=== PATIENT | female | born 1970 | race African-American/Black ===

== ENCOUNTER 2022-03-05 20:12 | Observation (INO) | payer OTHER ==
--- OUTSIDE RECORDS SUMMARY | 2022-03-05 20:15 | XMS REPORT | Continuity of Care Document ---
:1970 Author Organization [facility] t Address [address] [place] [address] Care Team Providers Name Role Phone PCP, PATIENT DOES NOT HAVE A Primary Care Physician Unavaila DEMI Bertrand Attending Clinician Unavailable Only, Ang Db Test Attending Clinician Unavailable Demi Das Attending Clinician Doctor Unassigned, [place] Attending Clinician Unavailable UNKNOWN, ATTENDING Attending Clinician Unavailable Payers Payer Name Policy Type Policy Number Effective Date Expiration Date S dariusz MARK DAYANR FROM [id number] 2021 [facility] 00:00:00 Problems This patient has no known problems. Allergies, Adverse Reactions, Alerts Allergy Allergy Status Severity Reaction(s) Onset Inactive Treating Comm ents Source Name Type Date Date Clinician NO KNOWN Drug Active Univers ALLERGIE Class [facility] of [facility] Social History Social Habit Start Date Stop Date Quantity Comments Source Exposure to Yes [facility] SARS-CoV-2 (event) Medica l Branch Sex Assigned At [birth year] [facility] 00:00:00 00:00:00 [facility] Smoking Status Start Date Stop Date Source Unknown if ever smoked [facility] Medications This patient has no known medications. Procedures Procedure Date / Time Performed Performing Clinician [facility] e CONSENT/REFUSAL FOR 2021-08-13 15:24:52 Doctor Unassigned, No [facility] DIAGNOSIS AND Name Medical Branch TREATMENT ASSIGNMENT OF BENEFITS 2021-08-13 15:24:40 Doctor Unassigned, No [facility] Encounters Start End Encounter Admission Attending Care Care Encounter Source Date/Time Date/Time Type Type Clinicians Facility Department ID 2021-08-13 2021-08-[address] [facility] [id number] Univers 09:15:00 09:31:45 DEMI ribeiro o f [facility] 2021-08-13 2021-08-13 Laboratory Only, Ang Db Test [facility] 1.2.8 [id number] Univers 09:15:00 09:30:00 Only Demi Reyes [facility] [id number] ity of [place] [id number] [place] as ANEUDY?BLEA [id number] [address] MEDICAL OFFICE BUILDING 2021-08-13 2021-08-13 Orders Doctor JENNIFER [id number] Univers 00:00:00 00:00:00 Only Unassigned, MAULIK [id number] ity of [place] [facility] [id number] [place] as [id number] [address] 2021-08-11 2021-08-11 Outpatient R ADRIANA, [facility] [id number] Univers 16:00:00 16:00:00 ATTENDING ity of [facility] Results This patient has no known results.
--- NOTE | 2022-03-05 21:32 | RAD REPORT ---
EXAM DESCRIPTION: RAD - Chest Single View - 03/05/2022 8:53 pm CLINICAL HISTORY: CHEST PAIN COMPARISON: October 2008 TECHNIQUE: AP portable chest image was obtained 03/05/2022 8:53 pm . FINDINGS: No focal mass or consolidation. Significant failure or volume overload are not suspected. Mild interstitial edema or infiltrate could be masked. Large body habitus and under penetrated portab le technique accentuate chest findings. Heart size is upper normal. Vasculature is mildly prominent. No measurable pleural effusion and no p neumothorax. No acute bony abnormality seen. No acute aortic findings suspected. IMPRESSION: No acute cardiopulmonary process. Exam limitations could mask minimal interstitial edema or infiltrate.
[2022-03-05] MEDS ORDERED: MAGNES/ALUMIN/SIMET 30ML UCUP ONE (21:38)
[2022-03-05] MEDS ORDERED: LIDOCAINE VISCOUS 2% SOLN 15 ML UDC ONE (21:38)
[2022-03-05] MEDS ORDERED: MORPHINE 2 MG/ML SYR ONE (22:02)
[2022-03-05] MEDS ORDERED: ONDANSETRON 4 MG/2 ML VIAL ONE (22:03)
[2022-03-05 22:19] LABS: Potassium 3.3 mmol/L (3.5-5.1); Troponin High Sensitivity 3.7 pg/mL (<58.9)
--- NOTE | 2022-03-05 22:24 | ER ---
Nurse's Notes [facility] Name: Tamar Chavez Age: 51 yrs Sex: Female : 1970 Arrival Date: 03/05/2022 Time: 20:13 Bed 18 Private MD: Diagnosis: Chest pain, unspecified Presentation: 03/05 20:17 Chief complaint: Patient states: "About an hour ago my chest started hurting bad. It tw5 started off as a 2 or 3 now it is a 9/10". Coronavirus screen: Vaccine status: Patient reports receiving the 2nd dose of the covid vaccine. moderna. Ebola Screen: Patient negative for fever greater than or equal to 101.5 degrees Fahrenheit, and additional compatible Ebola Virus Disease symptoms Patient denies exposure to infectious person. Patient denies travel to an Ebola-affected area in the 21 days before illness onset. Initial Sepsis Screen: Does the patient meet any 2 criteria? No. Patient's initial sepsis screen is negative. Does the patient have a suspected source of infection? No. Patient's initial sepsis screen is negative. Risk Assessment: Do you want to hurt yourself or someone else? Patient reports no desire to harm self or others. Onset of symptoms was March 05, 2022 at 19:30. 20:17 Method Of Arrival: Ambulatory tw5 20:17 Acuity: LUIS 2 tw5 Triage Assessment: 20:18 General: Appears uncomfortable, obese, Behavior is calm, cooperative, appropriate for tw5 age. Pain: Complains of pain in chest Pain currently is 9 out of 10 on a pain scale. Quality of pain is described as squeezing. Cardiovascular: Capillary refill < 3 seconds. 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 - Social history:: Smoking status: Patient denies any tobacco usage or history of. - Family history:: not pertinent. - Hospitalizations: : No recent hospitalization is reported. Screenin:11 Nutritional screening: No deficits noted. Tuberculosis screening: No symptoms or risk ja4 factors identified. Fall Risk None identified. 03/06 12:07 Abuse screen: Denies threats or abuse. Denies injuries from another. jg9 Assessment: 03/05 21:08 Pain: Complains of pain in chest Pain does not radiate. Quality of pain is described as ja4 pressure, Pain began 2 hours ago. Is intermittent, Aggravated by breathing. Respiratory: Reports pain with respiration. Vital Signs: 20:17 BP 135 / 91; Pulse 72; Resp 18; Temp 97.3; Pulse Ox 97% ; Weight 167.38 kg; Height 5 tw5 ft. 6 in. (167.64 cm); Pain 9/10; 21:08 BP 110 / 55; Pulse 68; Resp 13; Pulse Ox 100% ; Weight 167.38 kg; Height 5 ft. 6 in. ja4 (167.64 cm); Pain 7/10; 22:41 Pain 6/10; ja4 03/06 01:44 BP 101 / 63; Pulse 71; Resp 18; Pulse Ox 100% on R/A; ja4 03/05 21:08 Body Mass Index 59.56 (167.38 kg, 167.64 cm) ja4 ED Course: 03/05 20:13 Patient arrived in ED. ja2 20:17 Irvin David MD is Attending Physician. rn 20:18 Triage completed. tw5 20:18 Arm band placed on. tw5 20:55 XRAY Chest (1 view) In Process Unspecified. EDMS 21:08 Christian Yang, RN is Primary Nurse. ja4 21:11 Patient has correct armband on for positive identification. Bed in low position. Side ja4 rails up X2. Client placed on continuous cardiac and pulse oximetry monitoring. NIBP monitoring applied. alarm security or surveillance monitor on. 21:11 No provider procedures requiring assistance completed. Patient maintains SpO2 ja4 saturation greater than 95% on room air. 21:26 SARS-COV-2 RT PCR (Document "Date of Onset" if Symptomatic) Sent. ja4 21:51 Initial lab(s) drawn, by me, sent to lab. Accessed peripheral vein via ultrasound, bb utilizing dynamic ultrasound technique Powerglide midline 18g 10cm to right upper arm using hospital protocol good blood return and flushes easily pt tolerated well. 21:58 D-Dimer Sent. ja4 21:59 Basic Metabolic Panel Sent. ja4 21:59 CBC with Diff Sent. ja4 21:59 NT PRO-BNP Sent. ja4 21:59 Troponin HS Sent. ja4 22:23 Johnny Castro MD is Hospitalizing Provider. rn 03/06 12:07 Patient admitted, IV remains in place. jg9 Administered Medications: 03/05 21:34 Drug: GI Cocktail without - (Maalox Suspension 30 ml, Lidocaine Liquid 2 % 15 ja4 ml) Route: PO; 03/06 08:30 Follow up: Response: No adverse reaction jg9 03/05 21:58 Drug: morphine 2 mg Route: IVP; Infused Over: 4 mins; Site: right upper arm; ja4 22:41 Follow up: Pain 6/10 Adult ja4 21:58 Drug: Zofran (Ondansetron) 4 mg Route: IVP; Site: right upper arm; ja4 03/06 08:30 Follow up: Response: No adverse reaction jg9 Medication: 12:07 VIS not applicable for this client. jg9 Outcome: 03/05 22:23 Decision to Hospitalize by Provider. rn 03/06 12:07 Admitted to ER Hold. Please see [facility] for further documentation. jg9 12:07 Condition: stable jg9 12:08 Patient left the ED. jg9 Signatures: Dispatcher [employer] Jessica Denis RN Irvin Alberto MD MD rn Alexander, Jessica ja2 Wood, Tiffany tw5 Thea Fernando RN RN jg9 Christian Yang RN RN ja4 Corrections: (The following items were deleted from the chart) 03/05 20:19 20:18 Allergies: No Known Allergies; tw5 tw5 03/06 08:30 08:30 Response: No adverse reaction jg9 jg9
--- NOTE | 2022-03-05 22:24 | EDPHYS ---
Physician Documentation [facility] Name: Tamar Chavez Age: 51 yrs Sex: Female : 1970 Arrival Date: 03/05/2022 Time: 20:13 Bed 18 Private MD: ED Physician Irvin David HPI: 03/05 20:34 This 51 yrs old Black Female presents to ER via Ambulatory with complaints of Chest rn Pain. 20:34 The patient or guardian reports chest pain that is located primarily in the anterior rn chest wall, left. Onset: 1 hour(s) ago. The pain does not radiate. Associated signs and symptoms: Pertinent positives: shortness of breath, Pertinent negatives: abdominal pain, cough, lower extremity swelling. The chest pain is described as squeezing. Duration: The patient or guardian reports multiple episodes, that are intermittent. Modifying factors: The symptoms are alleviated by nothing. the symptoms are aggravated by deep breath. 20:35 Severity of pain: At its worst the pain was moderate in the emergency department the rn pain has improved. The patient has not experienced similar symptoms in the past. The patient has not recently seen a physician. Reports left sided chest pain at rest, had eaten a tuna sandwich, sitting in recliner, denies hx of acid reflux. + family hx of cardiac problems at her age. No recent fever or illness. Feels like pain gets worse with deep breath. Denies abd pain.. 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 - Social history:: Smoking status: Patient denies any tobacco usage or history of. - Family history:: not pertinent. - Hospitalizations: : No recent hospitalization is reported. ROS: 20:35 Constitutional: Negative for fever, chills, and weight loss, Eyes: Negative for injury, rn pain, redness, and discharge, Cardiovascular: Negative for palpitations, and edema Respiratory: Negative for cough, wheezing Abdomen/GI: Negative for abdominal pain, nausea, vomiting, diarrhea, and constipation, MS/Extremity: Negative for injury and deformity, Skin: Negative for injury, rash, and discoloration, Neuro: Negative for headache, weakness, numbness, tingling, and seizure. Exam: 20:35 Constitutional: This is a well developed, well nourished patient who is awake, alert, rn and in no acute distress. Head/Face: Normocephalic, atraumatic. Neck: Trachea midline, no masses palpated Cardiovascular: Regular rate and rhythm. No pulse deficits. Respiratory: No increased work of breathing, no retractions or nasal flaring. Abdomen/GI: Soft, non-tender Skin: Warm, dry MS/ Extremity: Pulses equal, no cyanosis. Equal circumference. Neuro: Awake and alert, GCS 15 21:09 ECG was reviewed by the Attending Physician. rn Vital Signs: 20:17 BP 135 / 91; Pulse 72; Resp 18; Temp 97.3; Pulse Ox 97% ; Weight 167.38 kg; Height 5 tw5 ft. 6 in. (167.64 cm); Pain 9/10; 21:08 BP 110 / 55; Pulse 68; Resp 13; Pulse Ox 100% ; Weight 167.38 kg; Height 5 ft. 6 in. ja4 (167.64 cm); Pain 7/10; 22:41 Pain 6/10; ja4 03/06 01:44 BP 101 / 63; Pulse 71; Resp 18; Pulse Ox 100% on R/A; ja4 03/05 21:08 Body Mass Index 59.56 (167.38 kg, 167.64 cm) ja4 MDM: 03/05 20:17 Patient medically screened. rn 22:22 Differential diagnosis: acute myocardial infarction, acute pericarditis, rn costochondritis, esophagitis, gastritis, gastroesophageal reflux disease (GERD), pericarditis, pleurisy, pneumothorax, pulmonary embolus. Data reviewed: vital signs, nurses notes, lab test result(s), EKG, radiologic studies, plain films, and as a result, I will admit patient. Counseling: I had a detailed discussion with the patient and/or guardian regarding: the historical points, exam findings, and any diagnostic results supporting the discharge/admit diagnosis, lab results, radiology results, the need for further work-up and treatment in the hospital. Response to treatment: the patient's symptoms have mildly improved after treatment, and as a result, I will admit patient. Admission orders: after a detailed discussion of the patient's condition and case, the admit orders are written by me. 03/05 20:17 Order name: Basic Metabolic Panel; Complete Time: 22:22 rn 03/05 20:17 Order name: CBC with Diff; Complete Time: 22:47 rn 03/05 20:17 Order name: NT PRO-BNP; Complete Time: 22:22 rn 03/05 20:17 Order name: Troponin HS; Complete Time: 22:22 rn 03/05 20:31 Order name: D-Dimer; Complete Time: 23:16 rn 03/05 20:31 Order name: SARS-COV-2 RT PCR (Document "Date of Onset" if Symptomatic); Complete Time: rn 22:06 03/05 20:17 Order name: XRAY Chest (1 view); Complete Time: 21:37 rn 03/06 05:15 Order name: CBC with Automated Diff EDMS 03/06 05:28 Order name: Comprehensive Metabolic Panel EDMS 03/06 05:28 Order name: Troponin High Sensitivity EDMS 03/06 05:28 Order name: Lipid Profile EDMS 03/06 05:28 Order name: T4 Free EDMS 03/06 05:28 Order name: Thyroid Stimulating Hormone EDMS 03/06 08:33 Order name: Glucose, Ancillary Testing EDMS 03/05 20:17 Order name: EKG; Complete Time: 20:18 rn 03/05 20:17 Order name: Cardiac monitoring; Complete Time: 21:30 rn 03/05 20:17 Order name: EKG - Nurse/Tech; Complete Time: 21:03 rn 03/05 20:17 Order name: IV Saline Lock; Complete Time: 21:59 rn 03/05 20:17 Order name: Labs collected and sent; Complete Time: 21:59 rn 03/05 20:17 Order name: O2 Per Protocol; Complete Time: 21:02 rn 03/05 20:17 Order name: O2 Sat Monitoring; Complete Time: 21:02 rn EC:10 Rate is 68 beats/min. Rhythm is regular. QRS [place] is Normal. [place] interval is normal. QRS rn interval is normal. QT interval is normal. No Q waves. T waves are Normal. No ST changes noted. Clinical impression: NSR w/ Non-specific ST/T Changes. Interpreted by me. Reviewed by me. Administered Medications: 21:34 Drug: GI Cocktail without - (Maalox Suspension 30 ml, Lidocaine Liquid 2 % 15 ja4 ml) Route: PO; 03/06 08:30 Follow up: Response: No adverse reaction jg9 03/05 21:58 Drug: morphine 2 mg Route: IVP; Infused Over: 4 mins; Site: right upper arm; ja4 22:41 Follow up: Pain 6/10 Adult ja4 21:58 Drug: Zofran (Ondansetron) 4 mg Route: IVP; Site: right upper arm; ja4 03/06 08:30 Follow up: Response: No adverse reaction jg9 Disposition Summary: 03/05/22 22:23 Hospitalization Ordered Hospitalization Status: Observation rn Provider: Johnny Castro rn Condition: Stable rn Problem: new rn Symptoms: have improved rn Bed/Room Type: Standard rn Location: [facility] ER HOLD(03/05/22 23:07) cg Room Assignment: ERHOLD-(03/05/22 23:07) cg Diagnosis - Chest pain, unspecified rn Forms: - Medication Reconciliation Form rn - SBAR form rn Signatures: Dispatcher [employer] EDMS Irvin David MD MD rn Attema, Lee, BRUSH HAND-C BRUSH HAND-Cla1 Adriana Kennedy RN RN Kinza Santiago 5 Christian Yang RN RN ja4 Thea Fernando RN jg9 Corrections: (The following items were deleted from the chart) 03/05 20:19 20:18 Allergies: No Known Allergies; tw5 tw5 21:10 21:09 ECG was reviewed by the Attending Physician. rn rn : 22:23 Telemetry/MedSurg (observation) rn reza : 22:23 rn cg
[2022-03-05 22:29] LABS: Absolute Lymphocytes (CBC) 2.8 K/uL (0.7-4.9); Hematocrit 38.3 % (36.0-45.0); Lymphocytes % 27.1 % (15.3-44.8); MCV 87.2 fL (80-100); MPV 9.5 fL (7.6-11.3); RBC Red Blood Cell Count 4.39 M/uL (3.86-4.86)
--- NOTE | 2022-03-05 23:35 | P.HP ---
Certification for Inpatient Patient admitted to: Observation With expected LOS: <2 Midnights Patient will require the following post-hospital care: None Practitioner: I am a practitioner with admitting privileges, knowledge of patient current condition, hospital course, and medical plan of care. Services: Services provided to patient in accordance with Admission requirements found in Title 42 Section 412.3 of the Code of Federal Regulations <Guicho Marcano - Last Filed: 03/05/22 23:31> Patient History Date of Service: 03/05/22 Reason for admission: Chest pain History of Present Illness: 51-year-old female with history of uwo-koyidaa-xvavjtnge diabetes, hypertension, obesity presents emergency department for chest pain. She was evaluated in the emergency department her EKG was without STEMI criteria initial troponin negative chest x-ray unremarkable D-dimer negative. She does report that her pain began about an hour after eating a tuna sandwich she described the pain as pressure/squeezing worse with deep breaths denies previous episodes in the past. Has never had any kind of cardiac evaluation denies taking OTC medications for GERD in the past. Will admit under observation for ACS rule out. 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, lives at home with her and children - Family History Father -: Heart disease - Social History Smoking Status: Never smoker Alcohol use: No CD- Drugs: No Caffeine use: Yes Place of Residence: Home <Guicho Marcano - Last Filed: 03/05/22 23:31> Date of Service: 03/06/22 <Johnny Castro - Last Filed: 03/06/22 18:33> Allergies butorphanol [From Stadol] Adverse Reaction (Verified 06/22/17 10:39) hallucinations Home Medications: Diclofenac Sodium [Voltaren] 1 tab PO BID 03/06/22 Gabapentin 150 mg PO DAILY 03/06/22 Losartan/Hydrochlorothiazide [Losartan-Hctz 50-12.5 mg Tab] 1 tab PO DAILY 03/06/22 Review of Systems 10-point ROS is otherwise unremarkable Cardiovascular: Chest Pain <Guicho Marcano - Last Filed: 03/05/22 23:31> Physical Examination - Physical Exam General: Alert, In no apparent distress, Oriented x3, Obese HEENT: Atraumatic, PERRLA, Mucous membr. moist/pink, EOMI, Sclerae nonicteric Neck: Supple, 2+ carotid pulse no bruit, No LAD, Without JVD or thyroid abnormality Respiratory: Clear to auscultation bilaterally, Normal air movement Cardiovascular: Regular rate/rhythm, Normal S1 S2 Gastrointestinal: Normal bowel sounds, No tenderness Musculoskeletal: No tenderness Integumentary: No rashes Neurological: Normal gait, Normal speech, Normal strength at 5/5 x4 extr, Normal tone, Normal affect Lymphatics: No axilla or inguinal lymphadenopathy - Studies Laboratory Data (last 24 hrs) 03/05/22 21:44: WBC 10.4, Hgb 12.8, Hct 38.3, Plt Count 274 03/05/22 21:44: Sodium 140, Potassium 3.3 L, BUN 14, Creatinine 0.91, Glucose 110 H <Guicho Marcano - Last Filed: 03/05/22 23:31> - Studies Laboratory Data (last 24 hrs) 03/05/22 21:44: WBC 10.4, Hgb 12.8, Hct 38.3, Plt Count 274 03/05/22 21:44: Sodium 140, Potassium 3.3 L, BUN 14, Creatinine 0.91, Glucose 110 H <Johnny Castro - Last Filed: 03/06/22 18:33> Assessment and Plan - Plan Assessment: Chest pain rule out ACS HTN DM-non insulin dependent Plan: Chest pain rule out ACS: Trend troponin, monitor on tele, cardiology consult. DD negative. Appreciate further input from cardiology HTN: Continue home meds . DM-non insulin dependent: ACHS accucheck, SSI DVT PPX: Lovenox Code status: Full Discharge Plan: Home Plan to discharge in: 24 Hours - Advance Directives Does patient have a Living Will: No Does patient have a Durable POA for Healthcare: No - Code Status/Comfort Care Code Status Assessed: Yes (Full code) Critical Care: No Time Spent Managing Pts Care (In Minutes): 70 <Guicho Marcano - Last Filed: 03/05/22 23:31> Physician Review: Patient Assessed, Agree with Above Assessment and Plan <Johnny Castro - Last Filed: 03/06/22 18:33>
[2022-03-06] MEDS ORDERED: MORPHINE 2 MG/ML SYR IV PRN (00:13)
[2022-03-06] MEDS ORDERED: D50W 25 GM/50 ML SYRINGE IV PRN (00:13)
[2022-03-06] MEDS ORDERED: ONDANSETRON 4 MG/2 ML VIAL IV PRN (00:13)
[2022-03-06] MEDS ORDERED: GLUCAGON 1 MG/VIAL IM PRN (00:13)
[2022-03-06] MEDS ORDERED: D10W 125 ML IV PRN (00:18)
[2022-03-06 01:51] VITALS: BMI 59.7
[2022-03-06] MEDS ORDERED: MORPHINE 2 MG/ML SYR ONE (04:49)
[2022-03-06] MEDS ORDERED: ONDANSETRON 4 MG/2 ML VIAL ONE (04:49)
[2022-03-06 05:11] LABS: Absolute Lymphocytes (CBC) 2.7 K/uL (0.7-4.9); Hematocrit 36.5 % (36.0-45.0); Lymphocytes % 29.6 % (15.3-44.8); MCV 86.8 fL (80-100); MPV 9.1 fL (7.6-11.3); RBC Red Blood Cell Count 4.21 M/uL (3.86-4.86)
[2022-03-06 05:27] LABS: Albumin 3.2 g/dL (3.4-5.0); Bilirubin Total 0.3 mg/dL (0.2-1.0); Potassium 3.3 mmol/L (3.5-5.1); Protein, Total 6.6 g/dL (6.4-8.2); Thyroid Stimulating Hormone 2.07 uIU/mL (0.360-3.740); Troponin High Sensitivity 3.9 pg/mL (<58.9)
[2022-03-06] MEDS: INSULIN -REGULAR HUMAN 50 UNIT/0.5 ML ML SQ SCH ×2 (07:30→11:30)
[2022-03-06] MEDS ORDERED: LOSARTAN/HCTZ 50-12.5 PO SCH (09:00)
[2022-03-06] MEDS ORDERED: ENOXAPARIN 40 MG/0.4 ML SQ SCH (09:00)
[2022-03-06] MEDS ORDERED: ASPIRIN EC 81 MG TAB PO SCH (09:00)
--- NOTE | 2022-03-06 10:32 | EKG ---
Test Date: 2022-03-05 Test Time: 20:39:02 Tax Audit Manager: JAYSON MEASUREMENT RESULTS: Intervals: Rate: 68 ND: 178 QRSD: 94 QT: 388 QTc: 412 [place]: P: 58 ND: 178 QRS: -3 T: 85 INTERPRETIVE STATEMENTS: Normal sinus rhythm Low voltage QRS Borderline ECG Compared to ECG 10/23/2008 22:21:34 Low QRS voltage now present Prolonged QT interval no longer present Electronically Signed On 03-06-22 10:31:20 CDT by Lux Burrows
[2022-03-06] MEDS ORDERED: ASPIRIN EC 81 MG TAB PO ONE (11:25)
--- NOTE | 2022-03-06 11:26 | ECHO ---
HEIGHT: 5 ft 6 in WEIGHT: 370 lb 0 oz DATE OF STUDY: 03/06/[address]: Lux Burrows MD 2-DIMENSIONAL: YES M.MODE: YES DOPPLER: YES COLOR FLOW: YES TDS: PORTABLE: YES DEFINITY: BUBBLE STUDY: DIAGNOSIS: CHEST PAIN CARDIAC HISTORY: CATHERIZATION: NO SURGERY: NO PROSTHETIC VALVE: NO PACEMAKER: NO MEASUREMENTS (cm) DIASTOLIC (NORMALS) SYSTOLIC (NORMALS) IVSd 1.1 (0.6-1.2) LA Diam 2.4 (1.9-4.0) LVEF 66% LVIDd 4.9 (3.5-5.7) LVIDs 3.1 (2.0-3.5) %FS 36% LVPWd 1.2 (0.6-1.2) Ao Diam 2.8 (2.0-3.7) 2 DIMENSIONAL ASSESSMENT: RIGHT ATRIUM: NORMAL LEFT ATRIUM: NORMAL RIGHT VENTRICLE: NORMAL LEFT VENTRICLE: NORMAL TRICUSPID VALVE: NORMAL MITRAL VALVE: NORMAL PULMONIC VALVE: NORMAL AORTIC VALVE: NORMAL PERICARDIAL EFFUSION: NONE AORTIC ROOT: NORMAL LEFT VENTRICULAR WALL MOTION: NORMAL DOPPLER/COLOR FLOW: NORMAL COMMENTS: NORMAL 2-DIMENSIONAL ECHOCARDIOGRAM WITH DOPPLER. NO WALL MOTION ABNORMALITY. NO EFFUSION. TECHNOLOGIST: KYRA MIRANDA.
--- NOTE | 2022-03-06 11:56 | P.DS ---
Admission Date: 03/05/22 Discharge Date: 03/06/22 Primary Care Provider: Dr. Stokes Disposition: ROUTINE DISCHARGE Discharge Condition: GOOD Reason for Admission: Chest pain Consultations: 1. 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 Tamar Chavez is a pleasant 51-year-old female with a past medical history significant for morbid obesity, type 2 diabetes mellitus, hypertension who was admitted to the [facility] on 03/05/2022 for chest pain. She was admitted to the Medicine service to evaluate for acute coronary syndrome. Upon further evaluation, her vital signs and laboratory studies were fairly unremarkable. Her troponin trend was 3.7 and 3.9, respectively. Her EKG was reportedly without any STEMI criteria. Her chest x-ray revealed, "no acute cardiopulmonary process." A transthoracic echocardiogram was performed and revealed, "normal 2-dimensional echocardiogram with doppler. No wall motion abnormality. No effusion." Cardiology was consulted and she was evaluated by Dr. Burrows. He has cleared her for discharge with a Cardiology follow-up appointment. On 03/06/2022, she was seen on morning rounds and deemed medically stable for discharge. She was discharged with instructions to schedule follow-up appointments with her PCP (Dr. Stokes) in 3-5 days and with Cardiology (Dr. Burrows) in 5-7 days. She was given the opportunity to ask questions and reported no further questions. Furthermore, all questions were answered to the best of my ability. Today, I personally spent 20 minutes with her, of which greater than 50% of the time was spent in patient education, counseling, and coordination of care as described above. Vital Signs/Physical Exam: Temp Pulse Resp BP Pulse Ox 97.3 F 72 18 135/91 H 97 03/06/22 13:02 03/06/22 13:02 03/06/22 13:02 03/06/22 13:02 03/06/22 13:02 General: Alert, In no apparent distress, Oriented x3 HEENT: Atraumatic, PERRLA, Mucous membr. moist/pink, EOMI, Sclerae nonicteric Neck: Supple, JVD not distended (difficult to assess given habitus) Respiratory: Clear to auscultation bilaterally, Normal air movement, Diminished Cardiovascular: No edema, Regular rate/rhythm, Normal S1 S2, No gallops, No rubs, No murmurs Gastrointestinal: Normal bowel sounds, Soft and benign, Non-distended, No tenderness, No rebound, No guarding Musculoskeletal: No clubbing Integumentary: No rashes Neurological: Normal speech, Cranial nerves 3-12 intact, Normal affect Laboratory Data at Discharge: WBC 9.2 K/uL (4.3-10.9) 03/06/22 04:47 Hgb 12.5 g/dL (12.0-15.0) 03/06/22 04:47 Hct 36.5 % (36.0-45.0) 03/06/22 04:47 Plt Count 262 K/uL (152-406) 03/06/22 04:47 Sodium 141 mmol/L (136-145) 03/06/22 04:47 Potassium 3.3 mmol/L (3.5-5.1) L 03/06/22 04:47 BUN 13 mg/dL (7-18) 03/06/22 04:47 Creatinine 0.85 mg/dL (0.55-1.3) 03/06/22 04:47 Glucose 98 mg/dL (74-106) 03/06/22 04:47 Total Bilirubin 0.3 mg/dL (0.2-1.0) 03/06/22 04:47 AST 12 U/L (15-37) L 03/06/22 04:47 ALT 20 U/L (12-78) 03/06/22 04:47 Alkaline Phosphatase 59 U/L (45-117) 03/06/22 04:47 Triglycerides 94 mg/dL (<150) 03/06/22 04:47 Cholesterol 167 mg/dL (<200) 03/06/22 04:47 HDL Cholesterol 41 mg/dL (40-60) 03/06/22 04:47 Cholesterol/HDL Ratio 4.07 03/06/22 04:47 Home Medications: Losartan/Hydrochlorothiazide [Losartan-Hctz 50-12.5 mg Tab] 1 tab PO DAILY 03/06/22 RX: Diclofenac Sodium [Voltaren] 1 tab PO BID 03/06/22 RX: Gabapentin 150 mg PO DAILY 03/06/22 Physician Discharge Instructions: 1. Please schedule a follow-up with your PCP (Dr. Stokes) in 3-5 days 2. Please schedule a follow-up with Cardiology (Dr. Burrows) in 5-7 days Diet: AHA Activity: Ad jazz Followup: Anil Stokes MD [Primary Care Provider] - Lux Burrows MD [ACTIVE - CAN ADMIT] - Time spent managing pt's care (in minutes): 20
[2022-03-06 13:05] VITALS: TEMP 97.3
[2022-03-06 13:08] VITALS: O2SAT 100
[2022-03-06 13:17] VITALS: BP 101/63
[2022-03-06] MEDS ORDERED: ATORVASTATIN 40 MG TAB PO SCH (21:00)
--- NOTE | 2022-03-07 14:42 | CON ---
Date of Consultation: 03/06/2022 Reason For Consultation: Chest pain. History Of Present Illness: Ms. Chavez is a 51-year-old black woman with history of hypertension a nd prediabetes. No previous cardiac history. Follows up with Dr. Romero's office for her hypertension . Takes Norvasc and losartan with hydrochlorothiazide. Came in with atypical chest pain, left-sided anterior sharp, stabbing, worse with inspiration. Denied PND, orthopnea, pedal edema, palpitations, or syncope. Denied any fever or chills. Denied any nausea or vomiting or diaphoresis. Her EKG was normal. Ejection fraction was normal. BNP and troponin were normal. Her potassium was 3.3. Past Medical History: As stated above. Allergies: SHE IS ALLERGIC TO BUTORPHANOL. Medications: At home were listed earlier. Review of Systems: Negative. Social History: Negative. Family History: She has had a history of valve replacement and coronary artery disease in her family . Physical Examination: Vital Signs: Ms. Chavez weighed 370 pounds. No acute distress. Vital signs stable, afebrile, sin us rhythm. HEENT: Negative. Neck: Supple. No bruit. Chest: Clear. Cardiac: Normal. Abdomen: Obese, but benign. Extremities: Revealed no clubbing, cyanosis, or edema. Diagnostic Data: As stated earlier. Impression And Plan: 1.Hypertension. 2.Prediabetes. 3.Obesity. 4.Hypokalemia. 5.Atypical chest pain. 6.Family history of heart disease. Ms. Chavez' weight makes it impossible to do a stress test on her. I think if she rules in, we linda l perform a heart catheterization via wrist approach. If she rules out, I think she may have an echo cardiogram done today and it this is normal, she can go home. Her potassium needs to be supplemented . I think her chest pain is more pleuritic than cardiac. NB/MODL Voice ID: [id number] Report ID: [id number]
== END 2022-03-06 12:33 | disposition home or self-care (01) ==
LOC: ER 20:12 → ERHOLD 23:06
PROVIDERS: ADMIT Internal Medicine; ATTEND Internal Medicine
DX: R07.89 Other chest pain (principal); I10 Essential (primary) hypertension; E11.40 Type 2 diabetes mellitus with diabetic neuropathy, unspecified; E87.6 Hypokalemia; E66.01 Morbid (severe) obesity due to excess calories; Z68.43 Body mass index [BMI] 50.0-59.9, adult; Z79.899 Other long term (current) drug therapy; Z88.6 Allergy status to analgesic agent; Z90.49 Acquired absence of other specified parts of digestive tract; Z20.822 Contact with and (suspected) exposure to COVID-19; Z82.49 Family history of ischemic heart disease and other diseases of the circulatory system
CPT/HCPCS: 93005; 93306; 85025 ×2; 80048; 36415; 80061; 82947; 85379; 84443; 84484 ×2; 84439; 80053; 83880; 71045; 96375; 96374; 99285; U0003; J2270 ×2; J2405 ×2; G0378 ×2

== ENCOUNTER 2024-10-02 16:44 | Emergency (ER) | payer BC ==
--- OUTSIDE RECORDS SUMMARY | 2024-10-02 16:46 | XMS REPORT | Continuity of Care Document ---
Author Name Unknown Address [address] [facility] [address] [id number] [facility] thconnect Address [address] [facility] [address] [place] [address] Care Team Providers Care Security Systems Engineer Name Role Phone PCP, PATIENT DOES NOT HAVE A Primary Care Physic brigette Unavailable DEMI LE Attending Clinician Margot e Only, Ang Db Test Attending Clinician Demi Mello Attending Clinician [phone] Doctor Unassigned, [place] Attending Clinician U navailable UNKNOWN, ATTENDING Attending Clinician Unavailab le Payers Payer Name Policy Type Policy Number Effective Date Expirati on Date Source HIM JOYCE FROM [facility] [id number] 2021 00:00:00 Allergies, Adverse Reactions, Alerts Allergy Name Allergy Type Status Severity Reaction(s) Onset Date Inactive Date Treating Clinician Comments Source NO KNOWN ALLERGIE S Drug Class Active [facility] Social History Social Habit Start Date Stop Date Quantity Comments Source Exposure to SARS-CoV-2 (event) Yes [facility] Sex Assigned At 1970 00:00:00 1970 00:00:00 [facility] Smoking Status Start Date Stop Date Source Unknown if ever smoked [facility] Procedures Procedure Date / Time Performed Performing Clinicia n Source CONSENT/REFUSAL FOR DIAGNOSIS AND TREATMENT 2021-08-13 15:24:52 Doctor Unassigned, [place] [facility] ASSIGNMENT OF BENEFITS 2021-08-13 15:24:40 Docto r Unassigned, [place] [facility] Encounters Start Date/Time End Date/Time Encounter Type Admission Type Attending Clinicians Care Facility Care Department Encounter ID Source 2021-08-13 09:15:00 2021-08-13 09:31:45 Outpatient R DEMI LE [facility] [id number] [facility] 2021-08-13 09:15:00 2021-08-13 09:30:00 Laboratory Only Only, Ang Db Test [facility]Critical [facility]ON [facility] [id number] [facility] 2021-08-13 00:00:00 2021-08-13 00:00:00 Orders Only Doctor Unassigned, [place] [facility] [id number] [facility] 2021-08-11 16:00:00 2021-08-11 16:00:00 Outpatient R UNKNOWN, ATTENDING [facility] [id number] [facility]
[2024-10-02] MEDS ORDERED: SMZ./TMP. 800/160 MG TABLET ONE (17:00)
[2024-10-02] MEDS ORDERED: CEPHALEXIN 250 MG CAP ONE (17:00)
--- NOTE | 2024-10-02 17:02 | ER ---
Nurse's Notes [facility] Name: Tamar Chavez Age: 54 yrs Sex: Female : 1970 Arrival Date: 10/02/2024 Time: 16:44 Bed IW1 Private MD: Diagnosis: Cutaneous abscess of right axilla Presentation: 10/02 16:58 Chief complaint: Patient states: abscess in right armpit since Thursday, has been iw draining. Coronavirus screen: At this time, the client does not indicate any symptoms associated with coronavirus-19. Ebola Screen: No symptoms or risks identified at this time. Initial Sepsis Screen: Does the patient meet any 2 criteria? No. Patient's initial sepsis screen is negative. Does the patient have a suspected source of infection? No. Patient's initial sepsis screen is negative. Risk Assessment: Do you want to hurt yourself or someone else? Patient reports no desire to harm self or others. Onset of symptoms was September 30, 2024. 16:58 Method Of Arrival: Ambulatory iw 16:58 Acuity: LUIS 4 iw Triage Assessment: 17:01 General: Appears in no apparent distress. Behavior is calm, cooperative. Pain: iw Complains of pain in right axilla Pain currently is 2 out of 10 on a pain scale. Historical: - Allergies: 17:00 Stadol; iw - PMHx: 17:00 pre-diabetic; Hypertensive disorder; iw - PSHx: 17:00 Appendectomy; Cholecystectomy; iw - Immunization history:: Adult Immunizations up to date, . - Infectious Disease History:: Denies. - Social history:: Smoking status: Patient denies any tobacco usage or history of. Vital Signs: 16:58 BP 121 / 65; Pulse 73; Resp 18; Temp 97.8; Pulse Ox 100% on R/A; Weight 129.27 kg; iw Height 5 ft. 7 in. ; Pain 2/10; 16:58 Body Mass Index 44.64 (129.27 kg, 170.18 cm) iw 16:58 Pain Scale: Adult iw ED Course: 16:47 Patient arrived in ED. im 16:49 Chary Hernandez FNP-C is [facility]. kb 16:49 Ander Cameron MD is Attending Physician. kb 16:59 Triage completed. iw 17:00 Arm band placed on. iw 17:05 Selam Chavez, RN is Primary Nurse. iw Administered Medications: 17:12 Drug: Trimethoprim-Sulfamethoxazole PO (160 mg-800 mg (DS) 1 tablet PO once Route: PO; iw 17:12 Drug: Cephalexin PO 500 mg PO once Route: PO; iw Outcome: 17:01 Discharge ordered by MD. [email or web address] 17:12 Patient left the ED. iw Signatures: Chary Hernandez, CENTRAL SERVICE TECH-C CENTRAL SERVICE TECH-Ckb Selam Chavez, RN RN iw Cinthya Funes Corrections: (The following items were deleted from the chart) 17:00 16:58 Pulse 73bpm; Resp 18bpm; Pulse Ox 100% RA; Temp 97.8F; 129.27 kg; Height 5 ft. 7 iw in.; BMI: 44.6; Pain 2/10, Adult; iw
--- NOTE | 2024-10-02 17:02 | EDPHYS ---
Physician Documentation [facility] Name: Tamar Chavez Age: 54 yrs Sex: Female : 1970 Arrival Date: 10/02/2024 Time: 16:44 Bed IW1 Private MD: ED Physician Ander Cameron HPI: 10/02 17:01 This 54 yrs old Black Female presents to ER via Ambulatory with complaints of Cyst - kb right armpit. 17:01 Pt is a 54 year old female who presents for abscess to right armpit that she noticed on kb Thursday. States it started draining today. Denies fever. . Historical: - Allergies: 17:00 Stadol; iw - PMHx: 17:00 pre-diabetic; Hypertensive disorder; iw - PSHx: 17:00 Appendectomy; Cholecystectomy; iw - Immunization history:: Adult Immunizations up to date, . - Infectious Disease History:: Denies. - Social history:: Smoking status: Patient denies any tobacco usage or history of. ROS: 17:00 Constitutional: As per HPI kb Exam: 17:00 Constitutional: This is a well developed, well nourished patient who is awake, alert, kb and in no acute distress. Head/Face: Normocephalic, atraumatic. ENT: Moist Mucous membranes Cardiovascular: Regular rate Respiratory: Respirations even and unlabored. No increased work of breathing. Talking in full sentences MS/ Extremity: Pulses equal, no cyanosis. Neurovascular intact. Full, normal range of motion. Neuro: Awake and alert, GCS 15, oriented to person, place, time, and situation. 17:00 Skin: abscess, that is moderate sized, of the right axilla, with drainage, that is purulent, with induration, Vital Signs: 16:58 BP 121 / 65; Pulse 73; Resp 18; Temp 97.8; Pulse Ox 100% on R/A; Weight 129.27 kg; iw Height 5 ft. 7 in. ; Pain 2/10; 16:58 Body Mass Index 44.64 (129.27 kg, 170.18 cm) iw 16:58 Pain Scale: Adult iw MDM: 16:49 Medical Screening Exam initiated kb 17:00 Differential diagnosis: abscess, cellulitis, insect bite. Data reviewed: vital signs, kb nurses notes. Counseling: I had a detailed discussion with the patient and/or guardian regarding the historical points, exam findings, and any diagnostic results supporting the discharge/admit diagnosis, the need for outpatient follow up, a family practitioner, to return to the emergency department if symptoms worsen or persist or if there are any questions or concerns that arise at home. Administered Medications: 17:12 Drug: Trimethoprim-Sulfamethoxazole PO (160 mg-800 mg (DS) 1 tablet PO once Route: PO; iw 17:12 Drug: Cephalexin PO 500 mg PO once Route: PO; iw Disposition: 19:09 Co-signature as Attending Physician, Ander Cameron MD I reviewed the patient's care rt provided by the Advanced Practice Provider and agree with the diagnosis and treatment plan. Disposition Summary: 10/02/24 17:01 Discharge Ordered Notes: Location: Home kb Condition: Stable kb Diagnosis - Cutaneous abscess of right axilla kb Followup: kb - With: Emergency Department - When: As needed - Reason: Worsening of condition Followup: kb - With: Private Physician - When: 2 - 3 days - Reason: Recheck today's complaints, Continuance of care, Re-evaluation by your physician Discharge Instructions: - Discharge Summary Sheet kb - Skin Abscess, [id number] kb Forms: - Medication Reconciliation Form kb - Antibiotic Education kb - Prescription Opioid Use kb - Patient Portal Instructions kb - Leadership Thank You Letter kb Prescriptions: - Cephalexin 500 mg Oral Capsule - take 1 capsule ORAL route every 8 hours for 10 days; 30 capsule; Refills: 0, kb Product Selection Permitted - Bactrim DS 800-160 mg Oral Tablet - take 1 tablet ORAL route every 12 hours for 10 days; 20 tablet; Refills: 0, kb Product Selection Permitted Signatures: Chary Hernandez FNP-C FNP-Selam Mike, MIRIAN RN iw Ander Cameron MD MD rt
[2024-10-02 17:16] VITALS: BP 121/65; TEMP 97.8; O2SAT 100
== END 2024-10-02 17:12 | disposition home or self-care (01) ==
LOC: ER 16:44
DX: L02.411 Cutaneous abscess of right axilla (principal)
CPT/HCPCS: 99282